=== PATIENT | male | born 1960 | race Caucasian/White ===

== ENCOUNTER 2025-01-25 08:54 | Outpatient (CLI) | payer MEDICARE, OTHER ==
--- NOTE | 2025-01-25 19:40 | CARDIOLOGY REPORT ---
APPROVED REPORT EXAM: Comprehensive 2D, Doppler, and color-flow Echocardiogram. 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 3.10 cm IVC 20.58 mm FS (%) 48.5 % SV 59.9 ml CO 3.1 L/min M-Mode Dimensions Aortic Root 3.30 (2.2-3.7cm) Aortic Cusp Exc 2.17 (1.5-2.0cm) MV EPSS 0.1 (<0.5cm) Aortic Valve AoV Peak Nikos. 134.4 cm/s AoV VTI 29.4 cm AO Peak GR. 7.2 mmHg AO Mean GR. 5 mmHg LVOT VTI 24.96 cm LVOT Peak Nikos. 93.5 cm/s DELORIS(VTI)/BSA 3.48 cm2/m2 DELORIS (VTI) 3.48 cm2 AI P 1/2 Time 896 ms AV DI 0.85 % Mitral Valve MV E Velocity 61.5 cm/s MV Peak Gr. 2 mmHg MV DECEL TIME 240 ms MV A Velocity 53.3 cm/s MV PHT 68 ms E/A Ratio 1.2 MVA (PHT) 3.24 cm2 MV VMax 74.3 cm/s TDI Lateral E' P. V 11.63 cm/s E/Lateral E' 5.3 Pulmonary Valve PAEDP 12.95 mmHg Tricuspid Valve TR P. Velocity 243 cm/s RAP ESTIMATE 10 mmHg TR Peak Gr. 24 mmHg RVSP 34 mmHg LEFT VENTRICLE Normal LV size and wall thickness. Overall systolic function is hyperdynamic. LVEF is 75-80%. RIGHT VENTRICLE Right ventricle is mildly dilated with adequate function. Elevated right heart pressures with an RVSP of 34 mmHg. ATRIA Left atrium is moderately dilated. AORTIC VALVE Trileaflet AV appears mildly sclerotic without stenosis. Moderate multijet insufficiency. MITRAL VALVE Mild mitral annular calcification without stenosis. Moderate regurgitation. TRICUSPID VALVE The tricuspid valve is normal in structure with trace regurgitation. PULMONIC VALVE The pulmonary valve is normal in structure with mild multijet insufficiency. GREAT VESSELS The aortic root is normal in size. The ascending aorta is normal in size. The IVC is normal in size and collapses >50% with inspiration. PERICARDIUM Normal pericardium. No effusion. Other Information Study Quality: Adequate Conclusion Normal LV size and wall thickness. Overall systolic function is hyperdynamic. LVEF is 75-80%. Right ventricle is mildly dilated with adequate function. Elevated right heart pressures with an RVSP of 34 mmHg. Left atrium is moderately dilated. Trileaflet AV appears mildly sclerotic without stenosis. Moderate multijet insufficiency. Mild mitral annular calcification without stenosis. Moderate regurgitation. The tricuspid valve is normal in structure with trace regurgitation. The pulmonary valve is normal in structure with mild multijet insufficiency. Normal pericardium. No effusion.
== END 2025-01-25 23:59 | disposition home or self-care (01) ==
LOC: RAD 08:54
PROVIDERS: ATTEND Nurse Practitioner Adult Health
DX: I08.8 Other rheumatic multiple valve diseases (principal); R01.1 Cardiac murmur, unspecified
CPT/HCPCS: 93306